=== PATIENT | male | born 1955 | race American Indian/Alaskan Native ===

== ENCOUNTER 2020-08-24 14:44 | Emergency (ER) | payer MEDICARE, OTHER ==
[2020-08-24] MEDS ORDERED: TETANUS,DIPH,PERTUSS(ACELL) VACCINE 0.5 ML SYRINGE IM ONE ×2 (18:24→22:27)
--- NOTE | 2020-08-24 18:28 | Event Note ---
ED Screening Note Date of service: 08/24/20 Time: 18:25 ED Screening Note: 65-year-old [id number] male patient presents to the emergency department with complaints of an accidental laceration to his left third finger occurring today. Patient states he was working on his yard when he accidentally cut himself with a leaf blower. Cannot recall last tetanus immunization. General: Awake, appropriately interactive, no acute distress. Neck: Supple. Full range of motion intact. Cardiovascular: Normal peripheral perfusion. Pulmonary: No respiratory distress. Patient is speaking normally without use of accessory muscles. Skin: No apparent rashes or lesions. Neurological: No facial asymmetry. Speech is clear. Follows commands. Patient is alert and oriented. Musculoskeletal: Pressure dressing to left hand. Psych: Cooperative. Appropriate mood and affect. Ordered x-rays and tetanus. I have greeted and performed a focused rapid initial assessment of this patient. A comprehensive ED assessment and evaluation of the patient, analysis of all test results, and completion of the medical decision-making process will be conducted by additional ED providers. This initial assessment/diagnostic orders/clinical plan/treatment(s) is/are subject to change based on patients health status, clinical progression and re-assessment. Further treatment and workup at subsequent clinical provider's discretion. Patient/guardian urged not to elope from the ED as their condition may be serious if not clinically assessed and managed.
--- NOTE | 2020-08-24 18:48 | XRay Report ---
XR hand 3+V LT INDICATION / CLINICAL INFORMATION: laceration, 3rd finger. COMPARISON: None available. FINDINGS: BONES/JOINT(S): No acute fracture or subluxation. No significant degenerative changes. SOFT TISSUES: Skin laceration in the distal index finger. No radiopaque foreign bodies. ADDITIONAL FINDINGS: None. Signer Name: Juvencio Pierce MD Signed: 08/24/2020 6:43 PM Workstation Name: [id number]
[2020-08-24] MEDS ORDERED: oxyCODONE /ACETAMINOPHEN 5-325MG TAB PO ONE (20:52)
[2020-08-24] MEDS ORDERED: LIDOCAINE (1%) 10 MG/1 ML VIAL 20 ML MDV INFILTRATI ONE (20:56)
--- NOTE | 2020-08-24 20:58 | Emergency Department Report ---
ED General Adult HPI - General Chief complaint: Laceration/Recheck/Suture Stated complaint: CUT FINGER OFF Time Seen by Provider: 08/24/20 20:07 Source: patient Mode of arrival: Ambulatory Limitations: No Limitations - History of Present Illness Initial comments: 65-year-old -[place] male patient presents with complaints of laceration to the left index finger today. Patient stated the fan of a leaf blower. He denies any difficulty moving his finger and rates his pain as a 9/10 in severity. No blood thinner use per patient. He also denies any loss of sensation. Severity scale (0 -10): 9 - Related Data Previous Rx's Medication Instructions Recorded Last Taken Type Ibuprofen [Motrin] 800 mg PO Q8H #30 tablet 02/14/14 Unknown Rx methOCARBAMOL [Robaxin] 500 mg PO BID #30 tab 02/14/14 Unknown Rx methylPREDNISolone [Medrol Dose 4 mg PO DAILY 6 Days tab 02/14/14 Unknown Rx Ryland] traMADoL [Ultram 50 MG tab] 50 mg PO Q6HR PRN #20 tablet 02/14/14 Unknown Rx Ibuprofen [Motrin 600 MG tab] 600 mg PO Q8H PRN #20 tablet 08/24/20 Unknown Rx Mupirocin [Bactroban 2% OINT] 1 applic TP TID 10 Days #1 tube 08/24/20 Unknown Rx cephALEXin [Keflex] 500 mg PO Q8HR 7 Days #21 cap 08/24/20 Unknown Rx traMADoL [Ultram 50 MG tab] 50 mg PO Q6HR PRN #8 tablet 08/24/20 Unknown Rx Allergies Allergy/AdvReac Type Severity Reaction Status Date / Time No Known Allergies Allergy Verified 02/14/14 11:56 ED Review of Systems ROS: Stated complaint: CUT FINGER OFF Other details as noted in HPI ED Past Medical Hx - Past Medical History Previous Medical History?: Yes Hx Hypertension: Yes Hx Diabetes: Yes - Surgical History Past Surgical History?: No - Social History Smoking Status: Never Smoker Substance Use Type: None - Medications Home Medications: Home Medications Medication Instructions Recorded Confirmed Last Taken Type Ibuprofen [Motrin] 800 mg PO Q8H #30 tablet 02/14/14 Unknown Rx methOCARBAMOL [Robaxin] 500 mg PO BID #30 tab 02/14/14 Unknown Rx methylPREDNISolone [Medrol Dose 4 mg PO DAILY 6 Days tab 02/14/14 Unknown Rx Ryland] traMADoL [Ultram 50 MG tab] 50 mg PO Q6HR PRN #20 tablet 02/14/14 Unknown Rx Ibuprofen [Motrin 600 MG tab] 600 mg PO Q8H PRN #20 tablet 08/24/20 Unknown Rx Mupirocin [Bactroban 2% OINT] 1 applic TP TID 10 Days #1 tube 08/24/20 Unknown Rx cephALEXin [Keflex] 500 mg PO Q8HR 7 Days #21 cap 08/24/20 Unknown Rx traMADoL [Ultram 50 MG tab] 50 mg PO Q6HR PRN #8 tablet 08/24/20 Unknown Rx ED Physical Exam - General Limitations: No Limitations General appearance: alert, in no apparent distress - Head Head exam: Present: atraumatic, normocephalic - Eye Eye exam: Present: normal appearance - Respiratory Respiratory exam: Absent: respiratory distress - Cardiovascular Cardiovascular Exam: Present: regular rate - Expanded Upper Extremity Exam Left Hand Wrist exam: Present: laceration (Irregular jagged mangle type laceration noted to left distal index finger; partial nail avulsion noted; no foreign bodies noted; patient has full range of motion of the DIP and PIP joint) Vascular: Absent: vascular compromise, radial pulse, ulnar pulse ED Course Vital Signs 08/24/20 08/24/20 15:13 21:08 Temperature 98.8 F Pulse Rate 98 H Respiratory 18 16 Rate Blood Pressure 144/92 [Right] O2 Sat by Pulse 98 Oximetry - Laceration /Wound Repair Finger Wound Length (cm): 3 Wound's Depth, Shape: irregular, nail-avulsed Wound Explored: clean Irrigated w/ Saline (ccs): 50 Betadine Prep?: Yes Anesthesia: 1% Lidocaine Volume Anesthetic (ccs): 10 Wound Repaired With: sutures (Digital block) Suture Size/Type: 4:0, 3:0 Number of Sutures: 15 (Simple interrupted) Layer Closure?: No Sterile Dressing Applied?: Yes Progress: Mild bleeding occurred. Patient tolerated procedure well without any immediate complications. He has full range of motion of the finger and perfusion post procedure ED Medical Decision Making - Radiology Data Radiology results: report reviewed XR hand 3+V LT INDICATION / CLINICAL INFORMATION: laceration, 3rd finger. COMPARISON: None available. FINDINGS: BONES/JOINT(S): No acute fracture or subluxation. No significant degenerative changes. SOFT TISSUES: Skin laceration in the distal index finger. No radiopaque foreign bodies. ADDITIONAL FINDINGS: None. - Medical Decision Making 65-year-old -[place] male patient presents with complaints of laceration to the left index finger today. Patient stated the fan of a leaf blower. He denies any difficulty moving his finger and rates his pain as a 9/10 in severity. No blood thinner use per patient. He also denies any loss of sensation. X-rays negative for any fracture. Laceration repair. Patient tolerated procedure well without any immediate complications. Patient instructed to follow-up with hand surgery in 3 days for reevaluation and further treatment. Keflex given for infection prophylaxis. He is well-appearing stable for discharge home. Discussed wound care and strict return precautions in detail with patient who verbalizes understanding. Critical care attestation.: If time is entered above; I have spent that time in minutes in the direct care of this critically ill patient, excluding procedure time. ED Disposition Clinical Impression: Laceration of finger Qualifiers: Encounter type: initial encounter Finger: index finger Damage to nail status: with damage Foreign body presence: without foreign body Laterality: left Qualified Code(s): S61.311A - Laceration without foreign body of left index finger with damage to nail, initial encounter Disposition: DC- TO HOME OR SELFCARE Is pt being admited?: No Condition: Stable Instructions: Sutured Wound Care, [id number] Additional Instructions: [facility] in [place], [place] Address: [address] [place] [id number] [id number], [place] [address] Prescriptions: Mupirocin [Bactroban 2% OINT] 1 applic TP TID 10 Days #1 tube cephALEXin [Keflex] 500 mg PO Q8HR 7 Days #21 cap Ibuprofen [Motrin 600 MG tab] 600 mg PO Q8H PRN #20 tablet PRN Reason: Pain traMADoL [Ultram 50 MG tab] 50 mg PO Q6HR PRN #8 tablet PRN Reason: Pain , Severe (7-10) Referrals: [facility] [Provider Group] - 3-5 Days
[2020-08-24] MEDS ORDERED: BACITRACIN ZINC OINT 28.4 GM TP ONE (22:31)
[2020-08-24] MEDS ORDERED: NEOMY 3.5 MG/BACIT 400 UNITS/POLY B 5000 UNITS/GM OINT PACKET TP ONE (22:35)
[2020-08-24 23:05] VITALS: BP 131/98
== END 2020-08-24 23:19 | disposition home or self-care (01) ==
LOC: ED 14:44
DX: S61.211A Laceration without foreign body of left index finger without damage to nail, initial encounter (principal); I10 Essential (primary) hypertension; E11.9 Type 2 diabetes mellitus without complications; Z79.899 Other long term (current) drug therapy; X58.XXXA Exposure to other specified factors, initial encounter; Y93.89 Activity, other specified; Y92.89 Other specified places as the place of occurrence of the external cause; Y99.8 Other external cause status
CPT/HCPCS: 12002; 73130; 90471; 90715; 99283; A6250